=== PATIENT | female | born 1970 | race Caucasian/White ===

== ENCOUNTER 2017-08-07 16:38 | Observation (INO) ==
[2017-08-07] MEDS ORDERED: IOPAMIDOL 100 ML BOTTLE IV ONE (16:39)
[2017-08-07] MEDS ORDERED: CLINDAMYCIN 600 MG in DEXTROSE 5% IN WATER 50 ML IV ONE (16:49)
[2017-08-07] MEDS ORDERED: LACTATED RINGERS 1,000 ML IV ONE (16:49)
[2017-08-07] MEDS ORDERED: fentaNYL 100 MCG/2 ML VIAL IV ONE ×2 (17:03→18:58)
[2017-08-07] MEDS ORDERED: ONDANSETRON 4 MG/2 ML VIAL IV ONE (17:03)
--- NOTE | 2017-08-07 17:25 | Emergency Department Note ---
Skin/Abscess/FB HPI - General Chief complaint: Skin/Abscess/Foreign Body Stated complaint: face swelling Time Seen by Provider: 08/07/17 16:48 Source: patient Mode of arrival: ambulatory Limitations: no limitations - History of Present Illness HPI Narrative: This patient returns emergency room after I saw her earlier in the day with a left facial cellulitis and some swelling. She was placed on clindamycin but the swelling has increased rather dramatically this afternoon. It is possible this may be related to a blocked salivary gland duct. - Related Data Home Medications Medication Instructions Recorded Confirmed Ibuprofen [Motrin] 800 mg PO TIDP PRN 08/07/17 08/07/17 Previous Rx's Medication Instructions Recorded Clindamycin HCl [Cleocin] 300 mg PO TID #30 cap 08/07/17 Allergies Allergy/AdvReac Type Severity Reaction Status Date / Time Oxycodone Allergy Unknown Unknown Verified 08/07/17 16:41 prednisone Allergy Unknown Unknown Verified 08/07/17 16:41 Hydromorphone AdvReac Mild Nausea Verified 08/07/17 16:41 Sulfa (Sulfonamide AdvReac Mild JOINT Verified 08/07/17 16:41 Antibiotics) SWELLING [SULFA(SULFONAMIDE ANTIBIOTICS)] Review of Systems All systems ED: reviewed and negative except as stated. Past Medical History - Past Medical History PMF Narrative: Medical History (Last Updated 07/27/17 @ 09:10 by Laura Aguilar) Fibromyalgia (Chronic ~2012) Alcoholism (Chronic) Joint pain (Chronic ~2012) Insomnia (Chronic ~2015) Gallbladder problem (Chronic ~2007) Depression (Chronic) Muscle pain (Chronic ~2012) Arthritis (Chronic ~2012) Anxiety (Chronic) Left lower quadrant pain (Chronic) Conjunctivitis (Chronic) Acute bronchitis (Chronic) Plantar fasciitis (Chronic) Toothache (Chronic) Smokers' cough (Chronic) Acute sinusitis (Chronic) Obesity (Chronic) Prehypertension (Chronic) Constipation (Chronic) Disorder of skeletal muscle (Chronic) Neck pain (Chronic) Shoulder pain (Chronic) Tobacco dependence syndrome (Chronic) Proteinuria (Chronic) CKD (chronic kidney disease) (Chronic) Past Surgical History (Last Updated 07/27/17 @ 09:13 by Laura Aguilar) History of appendectomy (Chronic 05/02/02) History of carpal tunnel surgery (Chronic 05/02/03) History of cholecystectomy (Chronic 05/02/03) History of oophorectomy (Chronic 07/28/11) History of orthopedic surgery (Chronic 05/02/13) History of tonsillectomy and adenoidectomy (Chronic 05/02/77) History of total abdominal hysterectomy (Chronic 07/28/11) Family History (Last Updated 07/27/17 @ 09:17 by Laura Aguilar) Mother Osteoarthritis Hypertension, essential Migraines Seizures Grandmother Osteoarthritis Grandfather Heart attack Surgical history ED: Reports: appendectomy, cholecystectomy, hysterectomy, orthopedic, other, tonsillectomy - Social History smoking status: Current every day smoker Physical Exam Left cheek area is markedly swollen again. It is increased quite a bit from earlier in the day. It is somewhat tender. The area of the upper salivary duct some irritation on the buccal mucosa. Limitations: no limitations General appearance: alert Head: atraumatic Eye: Present: normal appearance ENT: other Neck: Present: normal inspection Chest: Present: normal inspection Neurological: Present: alert Psychiatric: Present: normal affect, normal mood Skin: Present: warm, dry, intact Course Vital Signs Temperature 97.0 F 08/07/17 16:38 Pulse Rate 95 H 08/07/17 16:38 Respiratory Rate 20 08/07/17 16:38 Blood Pressure 145/87 08/07/17 16:38 Pulse Oximetry (%) 100 08/07/17 16:38 Temperature 97.0 F 08/07/17 16:38 Pulse Rate 77 08/07/17 18:31 Respiratory Rate 20 08/07/17 16:38 Blood Pressure 128/80 08/07/17 18:31 Pulse Oximetry (%) 97 08/07/17 18:31 Skin/Abscess/Foreign Body - [facility] Narrative Medical decision making narrative: This patient has a facial abscess seen by 11 x 4 mm. I discussed this case with Dr. Worthington ENT who will see her in the morning and Dr. Celestin who will admit her to the hospital for IV antibiotics. Will use Zosyn and vancomycin. - Lab Data Lab results reviewed: Yes I reviewed the patient's lab results. Result diagrams: 08/07/17 17:00 08/07/17 17:00 Lab Results 08/07/17 08/07/17 Range/Units 17:00 17:00 WBC 10.3 (4.5-11.0) K/mcL RBC 4.57 (4.00-5.20) M/mcL Hgb 14.7 (12.0-15.0) g/dL Hct 42.5 (36.0-48.0) % POC Hct 43.0 (36.0-48.0) % MCV 92.9 (80.0-100.0) fL MCH 32.1 (26.0-34.0) pg MCHC 34.6 (31.0-36.0) g/dL RDW 12.8 (11.5-14.5) % Plt Count 230 (140-440) K/mcL MPV 7.4 (7.4-10.4) fL Gran % 74.3 (38.0-78.0) % Lymph % (Auto) 16.3 (15.5-49.0) % Wright % (Auto) 7.6 (1.0-12.0) % Eos % (Auto) 1.5 (0.0-7.0) % Baso % (Auto) 0.3 (0.0-2.0) % Gran # 7.7 (1.8-8.0) K/mcL Lymph # (Auto) 1.7 (1.5-4.8) K/mcL Wright # (Auto) 0.8 (0.1-0.9) K/mcL Eos # (Auto) 0.2 (0.0-0.7) K/mcL Baso # (Auto) 0 (0.0-0.3) K/mcL POC Sodium 137 (133-145) mmol/L Sodium 136 (133-145) mmol/L POC Potassium 3.9 (3.3-5.1) mmol/L Potassium 4.1 (3.3-5.1) mmol/L POC Chloride 101 (96-108) mmol/L Chloride 100 (96-108) mmol/L Carbon Dioxide 25 (22-30) mmol/L POC Total CO2 26 (22-30) mmol/L Anion Gap 11.0 (8-16) POC BUN 16 (6-20) mg/dl BUN 15 (6-20) mg/dl Creatinine 0.7 (0.6-1.1) mg/dl POC Creatinine 0.7 (0.6-1.1) mg/dl GFR Calculation 104 Glucose 116 H (70-105) mg/dL POC Glucose 117 H (70-105) mg/dL Calcium 8.5 L (8.6-10.4) mg/dl POC WB Ioniz Calcium 1.04 L (1.16-1.32) mmol/L Total Bilirubin 0.4 (0.0-1.0) mg/dL AST 15 (0-37) U/l ALT 11 (0-40) U/l Alkaline Phosphatase 61 (39-117) U/L Total Protein 7.0 (5.9-8.4) gm/dL Albumin 4.2 (3.2-5.2) gm/dL Globulin 2.8 (2.2-3.7) gm/dL Albumin/Globulin Ratio 1.5 (1.0-2.3) - Radiology Data Radiology results reviewed: Yes I reviewed the patient's radiology results. Disposition Pt seen by FREIGHT HUSTLER/PA only: No Clinical Impression: Abscess of skin or subcutaneous tissue Disposition: Xfer As Inpt ([facility]) Condition: Good Referrals: Vee Luo ARNP [Primary Care Provider] - Time of Disposition: 18:46
[2017-08-07 17:59] LABS: Basophils # (Auto) 0 K/mcL (0.0-0.3); Basophils % (Auto) 0.3 % (0.0-2.0); Eosinophils # (Auto) 0.2 K/mcL (0.0-0.7); Eosinophils % (Auto) 1.5 % (0.0-7.0); Granulocytes % (Auto) 74.3 % (38.0-78.0); Lymphocytes # (Auto) 1.7 K/mcL (1.5-4.8); Lymphocytes % (Auto) 16.3 % (15.5-49.0); Mean Cell Volume 92.9 fL (80.0-100.0); Mean Corpuscular HGB Conc 34.6 g/dL (31.0-36.0); Mean Corpuscular Hemoglobin 32.1 pg (26.0-34.0); Monocytes # (Auto) 0.8 K/mcL (0.1-0.9); Monocytes % (Auto) 7.6 % (1.0-12.0); Platelet Count 230 K/mcL (140-440); RBC 4.57 M/mcL (4.00-5.20); Red Cell Distribution Width 12.8 % (11.5-14.5)
[2017-08-07 18:05] LABS: ALT/SGPT 11 U/l (0-40); Albumin 4.2 gm/dL (3.2-5.2); Albumin/Globulin Ratio 1.5 (1.0-2.3); Alkaline Phosphatase 61 U/L (39-117); Blood Urea Nitrogen 15 mg/dl (6-20)
[2017-08-07] MEDS ORDERED: VANCOMYCIN 1,000 MG in 0.9 % SODIUM CHLORIDE 250 ML IV ONE (18:45)
[2017-08-07] MEDS ORDERED: PIPERACILLIN SODIUM/TAZOBACTAM 3.375 GM in DEXTROSE 5% IN WATER 50 ML IV ONE (18:45)
[2017-08-07] MEDS ORDERED: NICOTINE 14 MG PATCH TOPICAL ONE (18:57)
--- NOTE | 2017-08-07 20:00 | Cat Scan Report ---
CLINICAL INFORMATION: Left-sided facial swelling no trauma COMPARISON: None. TECHNIQUE: 0.625 mm axial slices were obtained through the facial region. Following reconstruction, 2.5 millimeter, axial, sagittal and coronal reformations were obtained and reviewed in bone and soft tissue windows.The exam was performed using radiation dose optimization techniques including, but not limited to, automated exposure control, adjustment of the mA and/or kV according to patient size and use of iterative reconstruction technique. FINDINGS: Moderate beam hardening from dental amalgam moderately obscures the local soft tissues and bone. There is a large phlegmon involving predominantly the subcutaneous fat over both the left facial region extending from the mandibular ramus/mental region superiorly through the infraorbital region. There is mild thickening the buccal fascia. There is a 16 mm image or abscess in the soft tissues just anterior inferior to the left maxillary sinus with small amount of extra sinus gas. Facet Moderate nodular mucosal thickening seen in the left maxillary sinus with minimal mucosal thickening right frontal sinus. Both orbits including ocular globes, intraocular extraconal soft tissues and optic nerves are normal IMPRESSION: Large region of phlegmon, involving predominantly the subcutaneous fat of the left facial region, spanning from the mandibular ramus to the infraorbital region. A 16 mm immature abscess is seen just anterior-inferior to the left maxillary sinus with a small amount of extra sinus gas Moderate mucosal thickening left maxillary sinus suggesting some sinusitis Interpreted and Authenticated by: Ananda Benoti 08/07/17
[2017-08-07] MEDS ORDERED: HYDROmorphone 2 MG/ML VIAL IV PRN (20:33)
[2017-08-07] MEDS ORDERED: ACETAMINOPHEN 325 MG TABLET PO PRN (20:33)
[2017-08-07] MEDS ORDERED: ONDANSETRON 4 MG/2 ML VIAL IV PRN (20:33)
[2017-08-07] MEDS ORDERED: VANCOMYCIN PER PHARMACY IV ONE (20:33)
[2017-08-07] MEDS ORDERED: MAGNESIUM SULFATE 2 GM/50 ML BAG IV PRN (20:33)
[2017-08-07] MEDS ORDERED: ACETAMINOPHEN 1,000 MG/100 ML BOTTLE IV PRN (20:33)
[2017-08-07] MEDS ORDERED: POTASSIUM CHLORIDE 20 MEQ PACKET PO PRN (20:33)
[2017-08-07 20:57] LABS: C-Reactive Protein 2.3 mg/dl (0.0-0.8)
--- NOTE | 2017-08-07 21:48 | Internal Med History&Physical ---
Medical - H&P: [facility] Patient information: Note initiated : 08/07/17 at 9:44 pm Service Date, if different from initiated Date: [] Patient: Brittaney Chino a 47 y/o F admitted on 08/07/17 for face swelling. Chief Complaint: [] Chief complaint: left-sided facial swelling History of present illness: Ms. Chino is a 47 year old F who presents to the ER with rapid onset left- sided facial swelling that started earlier this morning noticed as she woke up. Swelling is associated with significant redness and pain limiting her ability to open her mouth and chew. She denies associated fever/photophobia. She had a similar episode a month ago after she had a tooth extraction on the right side however which resolved on amoxicillin. Patient denies associated headache year discharge orders sinus pain. She denies blurred vision or eye pain. She further denies recurrent boils,skin infection or zits. she denies history of diabetes. She denies substance abuse Initial workup in the ER was essentially unremarkable except for some facial CT revealing 16mm microabscess anterior to left maxillary sinus. ENT was consulted and recommended admission and initiation of antibiotics. Hospitalist service was subsequently consulted. at the time of evaluation patient is alert oriented. She is in significant distress from facial swelling and pain. She is currently on vancomycin and Zosyn. She denies local trauma. Review of systems 10 point review of system was performed and is negative except for what is discussed above Medical - H&P: PMH Medical history: Fibromyalgia (Chronic ~2012) Alcoholism (Chronic) Joint pain (Chronic ~2012) Insomnia (Chronic ~2015) Gallbladder problem (Chronic ~2007) Depression (Chronic) Muscle pain (Chronic ~2012) Arthritis (Chronic ~2012) Anxiety (Chronic) Left lower quadrant pain (Chronic) Conjunctivitis (Chronic) Acute bronchitis (Chronic) Plantar fasciitis (Chronic) Toothache (Chronic) Smokers' cough (Chronic) Acute sinusitis (Chronic) Obesity (Chronic) Prehypertension (Chronic) Constipation (Chronic) Disorder of skeletal muscle (Chronic) Neck pain (Chronic) Shoulder pain (Chronic) Tobacco dependence syndrome (Chronic) Proteinuria (Chronic) CKD (chronic kidney disease) (Chronic) Surgical history: History of appendectomy (Chronic 05/02/02) History of carpal tunnel surgery (Chronic 05/02/03) History of cholecystectomy (Chronic 05/02/03) History of oophorectomy (Chronic 07/28/11) History of orthopedic surgery (Chronic 05/02/13) History of tonsillectomy and adenoidectomy (Chronic 05/02/77) History of total abdominal hysterectomy (Chronic 07/28/11) Pertinent family history: Mother Osteoarthritis Hypertension, essential Migraines Seizures Grandmother Osteoarthritis Grandfather Heart attack Smoking status: Current every day smoker Have you smoked in the last 12 months: Yes Drug use: none Alcohol use: none Medical - H&P: Meds Home Medications Medication Instructions Recorded Confirmed Type Clindamycin HCl [Cleocin] 300 mg PO TID #30 cap 08/07/17 08/07/17 Rx Ibuprofen [Motrin] 800 mg PO TIDP PRN 08/07/17 08/07/17 History Allergies Allergy/AdvReac Type Severity Reaction Status Date / Time prednisone Allergy Unknown Hives Verified 08/07/17 21:15 Hydromorphone AdvReac Severe Vomiting Verified 08/07/17 21:01 Oxycodone AdvReac Mild Dizziness Verified 08/07/17 21:14 Sulfa (Sulfonamide AdvReac Mild JOINT Verified 08/07/17 16:41 Antibiotics) SWELLING [SULFA(SULFONAMIDE ANTIBIOTICS)] Medical - H&P: Exam - Constitutional Vitals: Temp Pulse Resp BP Pulse Ox 98.1 F 86 24 H 121/79 100 08/07/17 20:55 08/07/17 20:55 08/07/17 20:55 08/07/17 20:55 08/07/17 20:55 Medical - H&P: Reslt - Labs CBC & Chem 7: 08/07/17 17:00 08/07/17 17:00 Labs: Short CBC 08/07/17 Range/Units 17:00 WBC 10.3 (4.5-11.0) K/mcL Hgb 14.7 (12.0-15.0) g/dL Hct 42.5 (36.0-48.0) % Plt Count 230 (140-440) K/mcL BMP 08/07/17 17:00 Sodium 136 Potassium 4.1 Chloride 100 Carbon Dioxide 25 BUN 15 Creatinine 0.7 Glucose 116 H Calcium 8.5 L Liver Function 08/07/17 Range/Units 17:00 Total Bilirubin 0.4 (0.0-1.0) mg/dL AST 15 (0-37) U/l ALT 11 (0-40) U/l Alkaline Phosphatase 61 (39-117) U/L Albumin 4.2 (3.2-5.2) gm/dL - Impressions CT [id number] mm microabscess Medical - H&P: A/P (1) Cellulitis and abscess of face Current visit: Yes Status: Acute * cellulitis/abscess left side face- ENT consult. Continue Zosyn and vancomycin. Await cultures. * facial pain-as needed analgesics * Full code plan * antibiotic coverage * ENT consult
[2017-08-07] MEDS: 0.9 % SODIUM CHLORIDE 1,000 ML IV SCH (21:59)
[2017-08-07] MEDS ORDERED: VANCOMYCIN 500 MG in 0.9 % SODIUM CHLORIDE 100 ML IV ONE (22:00)
[2017-08-07] MEDS ORDERED: IBUPROFEN 200 MG TABLET PO PRN (22:30)
[2017-08-07] MEDS: 0.9 % SODIUM CHLORIDE 10 ML SYRINGE IV SCH (22:45)
[2017-08-07] MEDS: HEPARIN 5,000 UNIT/ML VIAL SQ SCH (22:45)
[2017-08-07] MEDS: DOCUSATE SODIUM 100 MG CAPSULE PO SCH (22:46)
[2017-08-07] MEDS: SENNOSIDES/DOCUSATE SODIUM 1 TAB TABLET PO SCH (22:46)
[2017-08-08] MEDS: PIPERACILLIN SODIUM/TAZOBACTAM 3.375 GM in DEXTROSE 5% IN WATER 50 ML IV SCH ×4 (00:46→18:44)
[2017-08-08] MEDS ORDERED: IBUPROFEN 600 MG TABLET PO ONE (00:51)
[2017-08-08] MEDS: 0.9 % SODIUM CHLORIDE 10 ML SYRINGE IV SCH ×3 (04:58→22:06)
[2017-08-08 05:44] LABS: Mean Cell Volume 94.1 fL (80.0-100.0); Mean Corpuscular HGB Conc 34.3 g/dL (31.0-36.0); Mean Corpuscular Hemoglobin 32.3 pg (26.0-34.0); Platelet Count 175 K/mcL (140-440); RBC 3.83 M/mcL (4.00-5.20); Red Cell Distribution Width 12.7 % (11.5-14.5)
[2017-08-08 06:33] LABS: Eosinophils % (Manual) 2 % (0-7); Lymphocytes % 23 % (15-49); Monocytes % (Manual) 2 % (1-12); Platelet Estimate NORMAL (NORMAL); RBC Morphology NORMAL (NORMAL); Segmented Neutrophils % 70 % (38-78)
[2017-08-08 06:37] LABS: ALT/SGPT 9 U/l (0-40); Albumin 3.4 gm/dL (3.2-5.2); Albumin/Globulin Ratio 1.5 (1.0-2.3); Alkaline Phosphatase 49 U/L (39-117); Bilirubin,Direct < 0.2 mg/dL (0.0-0.3); Blood Urea Nitrogen 12 mg/dl (6-20); Gamma Glutamyl Transpeptidase 11 U/L (5-36)
[2017-08-08] MEDS ORDERED: IBUPROFEN 200 MG TABLET PO PRN (06:45)
[2017-08-08] MEDS: 0.9 % SODIUM CHLORIDE 1,000 ML IV SCH ×2 (07:20→15:05)
[2017-08-08] MEDS ORDERED: VANCOMYCIN PER PHARMACY IV SCH (07:45)
[2017-08-08] MEDS: HEPARIN 5,000 UNIT/ML VIAL SQ SCH ×2 (08:27→21:02)
[2017-08-08] MEDS: VANCOMYCIN 1,500 MG in 0.9 % SODIUM CHLORIDE 500 ML IV SCH ×2 (08:27→21:03)
[2017-08-08] MEDS: MULTIVIT,THER IRON,CA,FA & MIN 1 TABLET PO SCH (08:27)
[2017-08-08] MEDS: DOCUSATE SODIUM 100 MG CAPSULE PO SCH ×2 (08:28→21:02)
[2017-08-08] MEDS: HYDROcodone/APAP 5/325MG TABLET PO PRN ×4 (09:22→21:18)
--- NOTE | 2017-08-08 10:40 | Internal Med Progress Note ---
Medical - PN: Subj Patient information: Note initiated : 08/08/17 at 10:37 am Service Date, if different from initiated Date: [] Patient: Brittaney Chino 47 y/o F admitted on 08/07/17 for face swelling. Chief Complaint: [] Interval history: Ms. Chino is a 47 year old F who presents to the ER with rapid onset left- sided facial swelling that started earlier this morning noticed as she woke up. Swelling is associated with significant redness and pain limiting her ability to open her mouth and chew. She denies associated fever/photophobia. She had a similar episode a month ago after she had a tooth extraction on the right side however which resolved on amoxicillin. Patient denies associated headache year discharge orders sinus pain. She denies blurred vision or eye pain. She further denies recurrent boils,skin infection or zits. she denies history of diabetes. She denies substance abuse Initial workup in the ER was essentially unremarkable except for some facial CT revealing 16mm microabscess anterior to left maxillary sinus. ENT was consulted and recommended admission and initiation of antibiotics. Hospitalist service was subsequently consulted. at the time of evaluation patient is alert oriented. She is in significant distress from facial swelling and pain. She is currently on vancomycin and Zosyn. She denies local trauma. 08/08-patient doing remarkably better. Improved left-sided facial swelling pain and erythema. Reviewed by ENT and recommends outpatient follow-up and possible discharge in 24 hourson oral antibiotic if continued to improve on IV antibiotics. no overnight fever or chills. No other concerns per staff - Constitutional Vitals: Vital Signs Temp Pulse Resp BP Pulse Ox 98.3 F 72 16 109/70 96 08/08/17 06:26 08/08/17 03:53 08/08/17 06:26 08/08/17 06:26 08/08/17 06:26 Period Temp Pulse Resp BP Sys/Flores Pulse Ox Last 24 Hr 97.0 F-98.4 F 72-95 16-24 101-145/63-87 95-100 Intake and Output 08/07/17 08/08/17 08/08/17 21:59 05:59 13:59 Intake Total 1354 / 1354 500 / 500 410 / 410 Output Total 350 / 350 1300 / 1300 1300 / 1300 Balance 1004 / 1004 -800 / -800 -890 / -890 Weight 213 lb Intake & Output: Intake & Output 08/07/17 08/08/17 08/08/17 21:59 05:59 13:59 Intake Total 1354 / 1354 500 / 500 410 / 410 Output Total 350 / 350 1300 / 1300 1300 / 1300 Balance 1004 / 1004 -800 / -800 -890 / -890 Weight 213 lb Intake: IV 1354 / 1354 150 / 150 50 / 50 Cleocin 600 mg In Dextrose 5% 54 / 54 in Water 50 ml @ 100 mls/hr IV ONCE ONE Rx#:[id number] Lactated Ringers 1,000 ml @ 1000 / 1000 Wide Open IV BOLUS ONE Rx#: [id number] Zosyn 3.375 gm In Dextrose 5% 50 / 50 50 / 50 50 / 50 in Water 50 ml @ 100 mls/hr IV Q6H [facility] Rx#:[id number] Oral 350 / 350 360 / 360 Output: Void Amount 350 / 350 1300 / 1300 1300 / 1300 General appearance: cooperative Exam: left-sided facial swelling improved Nonlabored breathing nondistended abdomen No anxiety Medical - PN: Obj Da - Labs CBC & Chem 7: 08/08/17 04:30 08/08/17 04:30 Labs: Abnormal Lab Results 08/08/17 08/08/17 08/07/17 04:30 04:30 17:00 RBC 3.83 L MPV 7.3 L Reactive Lymphocytes 3 H Glucose POC Glucose Calcium 7.9 L POC WB Ioniz Calcium C-Reactive Protein 2.3 H Total Protein 5.6 L 08/07/17 17:00 RBC MPV Reactive Lymphocytes Glucose 116 H POC Glucose 117 H Calcium 8.5 L POC WB Ioniz Calcium 1.04 L C-Reactive Protein Total Protein Meds: Medications Acetaminophen (Tylenol) 650 mg PO Q4-6HP PRN PRN Reason: PAIN/FEVER > 101 Hydrocodone Bitart/Acetaminophen (Canyon 5/325mg) 1 tab PO Q4HP PRN PRN Reason: PAIN LEVEL 3-6 Last Admin: 08/08/17 09:22 Dose: 1 tab Docusate Sodium (Colace) 100 mg PO BID [facility] Last Admin: 08/08/17 08:28 Dose: 100 mg Heparin Sodium (Porcine) (Heparin) 5,000 unit SQ Q12 [facility] Last Admin: 08/08/17 08:27 Dose: 5,000 unit Hydromorphone HCl (Dilaudid) 0 mg IV Q4HP PRN PRN Reason: PAIN LEVEL > 6 Magnesium Sulfate (Magnesium Sulfate) 2 gm in 50 mls @ 50 mls/hr IV UD PRN PRN Reason: MG = or < 1.7 Sodium Chloride (Sodium Chloride 0.9%) 1,000 mls @ 100 mls/hr IV .Q10H [facility] Last Admin: 08/08/17 07:20 Dose: Not Given Acetaminophen (Ofirmev) 1,000 mg in 100 mls @ 200 mls/hr IV Q6HP PRN PRN Reason: PAIN/FEVER > 101 Last Infusion: 08/07/17 22:30 Dose: Infused Piperacillin Sod/Tazobactam (Sod 3.375 gm/ Dextrose) 50 mls @ 100 mls/hr IV Q6H [facility] Last Infusion: 08/08/17 07:32 Dose: Infused Vancomycin HCl 1,500 mg/ (Sodium Chloride) 500 mls @ 333.3 mls/hr IV Q12H [facility] Last Admin: 08/08/17 08:27 Dose: 333.3 mls/hr Ibuprofen (Motrin) 200 - 400 mg PO Q6HP PRN PRN Reason: Pain Iron Carb/Multivit/J[employer]ne[employer]/Folic Acid (Multivitamin W/Minerals) 1 tab PO DAILY [facility] Last Admin: 08/08/17 08:27 Dose: 1 tab Morphine Sulfate (Morphine) 2 - 4 mg IV Q2HP PRN PRN Reason: PAIN LEVEL > 6 Last Admin: 08/08/17 09:31 Dose: 2 mg Ondansetron HCl (Zofran) 4 mg IV Q4-6HP PRN PRN Reason: Nausea And Vomiting Potassium Chloride (Klor-Con) 40 meq PO DAILYP PRN PRN Reason: K+ < 3.5 Senna/Docusate Sodium (Senna Plus Tablet) 1 tab PO HS [facility] Last Admin: 08/07/17 22:46 Dose: 1 tab Sodium Chloride (Saline Flush) 10 ml IV Q8 [facility] Last Admin: 08/08/17 04:58 Dose: Not Given Vancomycin HCl (Vancomycin Per Pharmacy) 1 order IV [facility] [place] Medical - PN: A/P - Time Spent With Patient Total time spent is greater than 50% in coordination of care (as documented) at patient's floor/unit and/or counseling patient: 15 - 24 minutes (1) Cellulitis and abscess of face Status: Acute Assessment and plan: [id number] with left-sided facial cellulitis * cellulitis/abscess left side face- clinical improvement noted on antibiotic coverage. ENT recommends outpatient follow-up and discharge on oral antibiotics once clinically better * facial pain-continueas needed analgesics * Full code plan * continue IV antibiotic coverage * possible discharge on oral antibiotics in 24 hours with ENT follow up Current Visit: Yes
[2017-08-08] MEDS ORDERED: NICOTINE 14 MG PATCH TOPICAL ONE (20:15)
[2017-08-08] MEDS: SENNOSIDES/DOCUSATE SODIUM 1 TAB TABLET PO SCH (21:02)
[2017-08-09] MEDS: HYDROcodone/APAP 5/325MG TABLET PO PRN ×3 (01:18→09:14)
[2017-08-09] MEDS: PIPERACILLIN SODIUM/TAZOBACTAM 3.375 GM in DEXTROSE 5% IN WATER 50 ML IV SCH ×2 (01:19→07:34)
[2017-08-09] MEDS: 0.9 % SODIUM CHLORIDE 1,000 ML IV SCH ×2 (03:34→06:30)
[2017-08-09] MEDS: 0.9 % SODIUM CHLORIDE 10 ML SYRINGE IV SCH (05:13)
[2017-08-09 06:38] LABS: Mean Corpuscular HGB Conc 34.2 g/dL (31.0-36.0); Mean Corpuscular Hemoglobin 32.2 pg (26.0-34.0); Platelet Count 181 K/mcL (140-440); RBC 3.68 M/mcL (4.00-5.20); Red Cell Distribution Width 13.2 % (11.5-14.5)
[2017-08-09 06:54] LABS: ALT/SGPT 9 U/l (0-40); Albumin/Globulin Ratio 1.3 (1.0-2.3); Alkaline Phosphatase 47 U/L (39-117); Bilirubin,Direct < 0.2 mg/dL (0.0-0.3); Blood Urea Nitrogen 11 mg/dl (6-20); Gamma Glutamyl Transpeptidase 13 U/L (5-36); Uric Acid 3.2 mg/dL (2.5-8.0)
[2017-08-09 08:31] LABS: Eosinophils % (Manual) 3 % (0-7); Lymphocytes % 36 % (15-49); Monocytes % (Manual) 11 % (1-12); Platelet Estimate NORMAL (NORMAL); RBC Morphology NORMAL (NORMAL); Segmented Neutrophils % 50 % (38-78)
[2017-08-09] MEDS: VANCOMYCIN 1,500 MG in 0.9 % SODIUM CHLORIDE 500 ML IV SCH (10:52)
[2017-08-09] MEDS: MULTIVIT,THER IRON,CA,FA & MIN 1 TABLET PO SCH (10:53)
[2017-08-09] MEDS: HEPARIN 5,000 UNIT/ML VIAL SQ SCH (10:53)
[2017-08-09] MEDS: DOCUSATE SODIUM 100 MG CAPSULE PO SCH (10:53)
--- NOTE | 2017-08-09 12:47 | Discharge Summary ---
Medical - DS: Prov Patient information: Note initiated : 08/09/17 at 12:45 pm Service Date, if different from initiated Date: [] Patient: Brittaney Chino 47 y/o F admitted on 08/07/17 for Face Swelling/ Cellulitis & Abscess of Face-Lt Side. Chief Complaint: [] Date of admission: 08/07/17 20:35 Discharge date: 08/09/17 Primary care physician: Vee Luo [facility] - DS: Meds - Discharge Medications Prescriptions: Acetaminophen [Tylenol] 650 mg PO Q4-6HP PRN #30 tab PRN Reason: Pain/Fever > 101 HYDROcodone/APAP 5/325MG [Giltner 5-325Mg] 1 tab PO Q4HP PRN #14 tab PRN Reason: Pain Level 3-6 Active and Home Medications: Home Medications Clindamycin HCl [Cleocin] 300 mg PO TID #30 cap 08/07/17 [Rx Confirmed 08/07/17 Last Taken 08/07/17 11:00] Ibuprofen [Motrin] 800 mg PO TIDP PRN 08/07/17 [History Confirmed 08/07/17 Last Taken 08/07/17 11:00] Acetaminophen [Tylenol] 650 mg PO Q4-6HP PRN #30 tab 08/09/17 [Rx Last Taken Unknown] HYDROcodone/APAP 5/325MG [Giltner 5-325Mg] 1 tab PO Q4HP PRN #14 tab 08/09/17 [Rx Last Taken Unknown] Medical - DS: Hosp Hospital course: Discharge diagnosis * facial cellulitis/abscess left side - clinical improvement noted on antibiotic coverage. ENT recommends outpatient follow-up and discharge on oral antibiotics. condition additional 7 days oral clindamycin * facial pain-continueas needed analgesics [facility] Ms. Chino is a 47 year old F who presents to the ER with rapid onset left- sided facial swelling that started earlier this morning noticed as she woke up. Swelling is associated with significant redness and pain limiting her ability to open her mouth and chew. She denies associated fever/photophobia. She had a similar episode a month ago after she had a tooth extraction on the right side however which resolved on amoxicillin. Patient denies associated headache year discharge orders sinus pain. She denies blurred vision or eye pain. She further denies recurrent boils,skin infection or zits. she denies history of diabetes. She denies substance abuse Initial workup in the ER was essentially unremarkable except for some facial CT revealing 16mm microabscess anterior to left maxillary sinus. ENT was consulted and recommended admission and initiation of antibiotics. Hospitalist service was subsequently consulted. at the time of evaluation patient is alert oriented. She is in significant distress from facial swelling and pain. She is currently on vancomycin and Zosyn. She denies local trauma. 08/08-patient doing remarkably better. Improved left-sided facial swelling pain and erythema. Reviewed by ENT and recommends outpatient follow-up and possible discharge in 24 hourson oral antibiotic if continued to improve on IV antibiotics. no overnight fever or chills. No other concerns per staff 08/09-patient doing well. No overnight events. Facial swelling resolved. We will follow up with ENT Dr. Worthington in 3 days. Continue oral clindamycin. No overnight fever chills or concerns per staff. Patient requesting discharge Discharge diagnosis: . - Time Spent with Patient Total time spent providing and/or coordinating discharge services: Less than 30 minutes Medical - DS: Exam - Constitutional Vitals: Vital Signs Temp Pulse Resp BP Pulse Ox 08/09/17 12:00 97.4 F 63 18 112/70 97 08/09/17 07:35 97.2 F 66 18 107/73 98 08/09/17 04:00 97.6 F 71 18 103/67 97 08/09/17 00:00 97.5 F 70 18 123/78 96 08/08/17 20:00 98.0 F 76 20 105/68 96 08/08/17 15:48 98.9 F 18 119/72 98 Intake and Output 08/08/17 08/09/17 08/09/17 21:59 05:59 13:59 Intake Total 2155 / 2155 2750 / 2750 Output Total 1400 / 1400 1450 / 1450 Balance 755 / 755 1300 / 1300 Intake: IV 50 / 50 1550 / 1550 Sodium Chloride 0.9% 1,000 ml @ 1000 / 1000 100 mls/hr IV .Q10H [facility] Rx#: [id number] Zosyn 3.375 gm In Dextrose 5% 50 / 50 50 / 50 in Water 50 ml @ 100 mls/hr IV Q6H [facility] Rx#:[id number] Vancomycin 1,500 mg In Sodium 500 / 500 Chloride 0.9% 500 ml @ 333.3 mls/hr IV Q12H [facility] Rx#: [id number] Oral 2105 / 2105 1200 / 1200 Output: Void Amount 1400 / 1400 1450 / 1450 Other: # Voids 2 Weight 215 lb Medical - DS: Data Labs on day of discharge: Labs from last 24 hours 08/09/17 08/09/17 08/09/17 08:24 05:00 05:00 WBC 6.2 RBC 3.68 L Hgb 11.8 L Hct 34.6 L MCV 94.0 MCH 32.2 MCHC 34.2 RDW 13.2 Plt Count 181 MPV 7.2 L Total Counted 100 Seg Neutrophils % 50 Band Neutrophils % Not Reportable Lymphocytes % 36 Monocytes % (Manual) 11 Eosinophils % (Manual) 3 Platelet Estimate Normal RBC Morphology Normal Sodium 137 Potassium 4.2 Chloride 104 Carbon Dioxide 23 Anion Gap 10.0 BUN 11 Creatinine 0.7 GFR Calculation 104 Glucose 78 Uric Acid 3.2 Calcium 7.9 L Phosphorus 3.0 Magnesium 2.1 Total Bilirubin 0.2 Direct Bilirubin < 0.2 GGT 13 AST 11 ALT 9 Alkaline Phosphatase 47 Lactate Dehydrogenase 113 Total Protein 5.4 L Albumin 3.0 L Globulin 2.4 Albumin/Globulin Ratio 1.3 Triglycerides 83 Vancomycin Trough 15.3 Preliminary micro results at discharge 08/07/17 21:00 Blood Culture - Preliminary Blood 08/07/17 20:50 Blood Culture - Preliminary Blood Medical - DS: A/P - Patient/Caregiver Discharge Instructions Activity: increase activity as tolerated Diet: Regular Diet Additional Instructions: follow-up Dr. Worthington in ENT in 3 days continue clindamycinBy mouth for 7 days Return to ER or worsening facial swelling/fever chills blurred vision or headache Prescriptions: Acetaminophen [Tylenol] 650 mg PO Q4-6HP PRN #30 tab PRN Reason: Pain/Fever > 101 HYDROcodone/APAP 5/325MG [Giltner 5-325Mg] 1 tab PO Q4HP PRN #14 tab PRN Reason: Pain Level 3-6 - Problem Maintenance (1) Cellulitis and abscess of face Status: Acute - Follow up Plan Follow up with: Vee Luo ARNP [Primary Care Provider] - Disposition: Home, Self-Care Prognosis: Good Rehab Potential: Fair I certify that the patient requires SNF services: No Overall status at discharge: patient is progressing back to baseline
== END 2017-08-09 13:42 | disposition home or self-care (01) ==
LOC: ED 16:38 → MEDSUR 16:38
PROVIDERS: ADMIT Internal Medicine; ATTEND Internal Medicine